=== PATIENT | female | born 1950 | race Caucasian/White ===

== ENCOUNTER 2018-09-06 01:48 | Emergency (ER) | payer MEDICARE ==
[~2018-09-06] VITALS: Ht 157.5 cm; Wt 63.1 kg
[2018-09-06 02:36] LABS: BASO % 0.6 % (0.0-1.0); EOS # 0.3 10^3/uL (0.0-0.50); EOS % 3.9 % (0.0-3.0); HEMATOCRIT 41.2 % (36.0-47.0); HEMOGLOBIN 13.6 g/dl (12.0-15.5); LYMPH # 1.5 10^3/uL (1.5-4.5); LYMPH % 20.2 % (24.0-44.0); MEAN CORPUSCULAR HEMOGLOBIN 28.3 pg (27.0-33.0); MEAN CORPUSCULAR VOLUME 85.7 fl (80.0-96.0); MONO # 0.7 10^3/uL (0.0-0.8); NEUTROPHILS # 4.8 10^3/uL (1.8-7.7); NEUTROPHILS % 65.9 % (36.0-66.0); PLATELET COUNT, AUTOMATED 271 10^3/uL (150-450); RED BLOOD COUNT 4.81 10^6/uL (4.00-5.40); WHITE BLOOD COUNT 7.2 10^3/uL (4.0-10.0)
[2018-09-06] MEDS ORDERED: VENTAER (02:53)
[2018-09-06] MEDS ORDERED: KETO2SH (02:53)
[2018-09-06] MEDS ORDERED: LEVO75TA4 (02:53)
[2018-09-06] MEDS ORDERED: AMOX (02:53)
[2018-09-06] MEDS ORDERED: PROP10TA56 (02:53)
[2018-09-06] MEDS ORDERED: AMLO5TAB6 (02:53)
[2018-09-06] MEDS ORDERED: LISI-538 (02:53)
[2018-09-06] MEDS ORDERED: BENZ200C70 (02:53)
[2018-09-06] MEDS ORDERED: GI COCKTAIL 50ML BTL(HYOSCYAMINE/MAALOX/LIDOCAINE VISCOUS)(1:3:1) PO ONE (03:00)
[2018-09-06 03:01] LABS: ALBUMIN 3.8 GM/DL (3.2-5.2); ALT/SGPT 11 U/L (12-78); BILIRUBIN,DIRECT < 0.1 MG/DL (0.0-0.2); BILIRUBIN,TOTAL 0.3 MG/DL (0.2-1.0); BLOOD UREA NITROGEN 11 MG/DL (7-18); CALCIUM LEVEL 9.2 MG/DL (8.8-10.2); CARBON DIOXIDE LEVEL 29 MEQ/L (21-32); CHLORIDE LEVEL 106 MEQ/L (98-107); CK-MB VALUE MASS < 1.0 NG/ML (<3.6); CPK CREATINE PHOSPHOKINASE 43 U/L (26-192); CREATININE FOR GFR 0.73 MG/DL (0.55-1.30); GLOMERULAR FILTRATION RATE > 60.0 (>45); GLUCOSE, FASTING 123 MG/DL (70-100); LIPASE 271 U/L (73-393); MB/CK RELATIVE INDEX 2.33 (< OR =4); POTASSIUM SERUM 4.3 MEQ/L (3.5-5.1); SODIUM LEVEL 141 MEQ/L (136-145); TOTAL PROTEIN 7.2 GM/DL (6.4-8.2); TROPONIN I < 0.02 NG/ML (< 0.10)
[2018-09-06 03:11] LABS: CK-MB VALUE MASS < 1.0 NG/ML (<3.6); CPK CREATINE PHOSPHOKINASE 41 U/L (26-192); MB/CK RELATIVE INDEX 2.44 (< OR =4); TROPONIN I < 0.02 NG/ML (< 0.10)
[2018-09-06] MEDS ORDERED: PANTOPRAZOLE 40MG INJ (PROTONIX) (C9113) IV ONE (03:30)
[2018-09-06] MEDS ORDERED: OMEPRAZOLE 20 MG CAP PO ONE ×2 (03:30)
[2018-09-06] MEDS ORDERED: PROT1TAB2 PO (03:44)
[2018-09-06] MEDS ORDERED: CARA1TAB6 PO (03:44)
[2018-09-06] MEDS ORDERED: SUCRALFATE 1 GM TAB PO ONE (03:45)
[2018-09-06 03:50] VITALS: BP 142/60
--- NOTE | 2018-09-06 09:31 | ECGEPIP ---
Stationary ECG Study [facility] - ED Test Date: 2018-09-06 Pat Name: CHRISTINE BURNETT Department: Room: - Gender: F Alteration Manager: mauro : [id number] Requested By: ELIZABETH GARRETT Order Number: [id number] Reading MD: Simona Hudson Measurements Intervals [place] Rate: 59 P: 8 MD: 170 QRS: 3 QRSD: 94 T: 20 QT: 397 QTc: 395 Interpretive Statements SINUS BRADYCARDIA POSSIBLE INFERIOR INFARCT NONSPECIFIC ST T WAVE CHANGES - INFEROLATERAL LEADS CLINICAL CORRELATION ADVISED NO OLD ECG FOR COMPARISON Electronically Signed On 09-06-2018 9:30:49 EST by Simona Hudson
== END 2018-09-06 04:00 | disposition home or self-care (01) ==
LOC: M ED 01:48
DX: K29.70 Gastritis, unspecified, without bleeding (principal); I10 Essential (primary) hypertension; J45.909 Unspecified asthma, uncomplicated; E03.9 Hypothyroidism, unspecified; K21.9 Gastro-esophageal reflux disease without esophagitis; Z79.899 Other long term (current) drug therapy; Z79.890 Hormone replacement therapy
CPT/HCPCS: 80048; 80076; 82550; 82553; 83690; 84484; 85025; 93005; 96374; 99284; C9113

== ENCOUNTER → 2018-09-30 | Outpatient (REF) | payer MEDICARE ==
[~2018-09-30] MED LIST: AMLO5TAB6; AMOX; BENZ200C70; CARA1TAB6 PO; KETO2SH; LEVO75TA4; LISI-538; PROP10TA56; PROT1TAB2 PO; VENTAER
== END ==
LOC: M LAB REF 16:23
PROVIDERS: ATTEND Physician Assistant
DX: R30.0 Dysuria (principal)